=== PATIENT | female | born 1970 | race Two or more races ===

== ENCOUNTER 2025-10-04 17:22 | Emergency (ER) | payer SELFPAY ==
[2025-10-04 18:10] VITALS: BP 147/62; PULSE 86; RESP 18; TEMP 36.6; O2SAT 96; BMI 24.8
--- NOTE | 2025-10-04 18:42 | XR_ITS ---
Examination: CT brain head without contrast. 2-D sagittal coronal reconstructions Date and time of exam: October 04, 2025, 1911 hours INDICATIONS: Nausea vomiting dizziness onset today CTDI: vol (mGy): 48.4 DLP: (mGycm): 902 Technique: Multiple CT axial sections of the brain have been obtained, 5 mm slice thickness. Contrast has not been administered. 2-D sagittal, coronal reconstructions have been obtained Low dose protocols were performed. One or more of the following dose reduction techniques were used; automated exposure control, adjustment of the mA and/or KV according to patient size, use of iterative reconstruction technique. Findings: No significant ventricular enlargement. Intra-axial or extra-axial hemorrhage density is not seen. No mass effect or midline shift Basal cisterns are not remarkable. Fourth ventricle is midline. Cranial vault intact. Impression: Negative for acute hemorrhage, mass effect or midline shift Advise clinical correlation and follow-up accordingly
--- NOTE | 2025-10-04 18:42 | EKG_ITS ---
[facility] Test Date: 2025-10-04 Pat Name: HORACIO WHATLEY Department: Room: - Gender: Female People Greeter: : 1970 Requested By: Mikki Alatorre Order Number: [id number] Reading MD: Mikki Alatorre Measurements Intervals [place] Rate: 86 P: 53 SC: 151 QRS: 24 QRSD: 73 T: 63 QT: 351 QTc: 422 Interpretive Statements SINUS RHYTHM LOW QRS VOLTAGE IN PRECORDIAL LEADS [QRS DEFLECTION < 1.0 mV IN CHEST LEADS] NONSPECIFIC T-WAVE ABNORMALITY No previous ECG available for comparison /store/S0/[id number]/[id number].pdf
[2025-10-04 19:17] LABS: Basophils # (Auto) 0.0 Thou/mm3 (0.0-0.2); Basophils % (Auto) 0 % (0-2.5); Eosinophils # (Auto) 0.0 Thou/mm3 (0.0-0.5); Eosinophils % (Auto) 0 % (0-10); Hematocrit 43.4 % (36.0-46.0); Hemoglobin 14.9 g/dL (12.0-16.0); Immature Granulocytes Auto 0.11 Thou/mm3 (0.00-0.00); Lymphocytes # (Auto) 1.6 Thou/mm3 (1.0-4.8); Lymphocytes % (Auto) 16 % (10-50); Mean Corpuscular HGB Conc 34.3 g/dl (31.0-37.0); Mean Corpuscular Hemoglobin 29.7 pg (25.0-35.0); Mean Corpuscular Volume 87 fL (80-100); Monocytes # (Auto) 0.3 Thou/mm3 (0.0-0.8); Monocytes % (Auto) 3 % (0-12); Neutrophils # (Auto) 8.0 Thou/mm3 (1.8-7.7); Neutrophils % (Auto) 79 % (37-80); Nucleated Red Blood Cell # 0.00 Thou/mm3 (0.00-0.00); Nucleated Red Blood Cell % 0 /100 WBC (0); Platelet Count 198 Thou/mm3 (140-440); RDW Standard Deviation 38.1 fL (36.4-46.3); Red Blood Count 5.02 Miln/mm3 (4.00-5.20); White Blood Count 10.0 Thou/mm3 (3.6-11.0)
[2025-10-04 19:37] LABS: Alanine Aminotransferase 67 U/L (10-49); Albumin, Serum 5.4 gm/dL (3.5-5.0); Albumin/Globulin Ratio 1.8 (1.2-2.2); Alkaline Phosphatase 97 U/L (46-116); Anion Gap 12 (7-16); Aspartate Amino Transferase 46 U/L (0-34); BUN/Creatinine Ratio 20 Ratio (12-20); Bilirubin,Total 0.7 mg/dL (0.3-1.2); Blood Urea Nitrogen 12 mg/dL (9-23); Calcium 10.5 mg/dL (8.3-10.6); Calcium (Corrected) 10.5 mg/dL (8.5-10.1); Carbon Dioxide 26.5 mMol/L (20.0-31.0); Chloride 106 mMol/L (98-107); Creatinine (Component) 0.6 mg/dL (0.6-1.3); Estimated Creatinine Clearance 89.4 mL/min (>60); Globulin 3.0 gm/dL (2.3-3.5); Glucose 119 mg/dL (74-106); Osmolality,Calculated 287 (275-295); Potassium 4.6 mMol/L (3.4-5.1); Sodium 144 mMol/L (136-145); Total Protein 8.4 gm/dL (5.7-8.2); Troponin I < 0.002 ng/mL (0.0-0.045); eGFR > 60 See Note
[2025-10-04 20:31] LABS: Collection Type, Urine Clean Catch
[2025-10-04] MEDS: ONDANSETRON INJ 2 MG/ML INJ 2 ML 4 MG IVP (20:42)
[2025-10-04] MEDS: SODIUM CHLORIDE 0.9% 1000 ML 1,000 ML 999 ML IV (20:43)
[2025-10-04 20:52] LABS: Amorphous Crystals,Urine Present (Absent); Bacteria,Urine Rare; Bilirubin,Urine Negative (Negative); Blood,Urine Trace (Negative); Clarity,Urine Clear (Clear/Hazy); Color,Urine Yellow (Lt Yel-Yel); Glucose, Urine Negative (Negative); Ketones,Urine 1+ (Negative); Leukocyte Esterase,Urine Negative (Negative); Nitrite,Urine Negative (Negative); PH,Urine 6.5 (5.0-7.0); Protein,Urine Trace (Neg - Trace); RBC,Urine 10 /hpf (0-3); Specific Gravity,Urine 1.024 (1.001-1.035); Squamous Epithelial Cell,Urine 3 /hpf (0-5); Urobilinogen,Urine Negative mg/dL (0.0-1.0); WBC,Urine 1 /hpf (0-5)
[2025-10-04 20:54] LABS: HCG Qualitative,Urine Negative
--- NOTE | 2025-12-19 10:05 | PD.EDDIZZY ---
ED Dizzyness RME/HPI General Chief Complaint: Nausea/Vomiting/Diarrhea Stated Complaint: N/V/D, DIZZY Time Seen by Provider: 10/04/25 18:35 Arrival date/time: 10/04/25 17:22 This is a case of 55-year-old female with no medical history came in in the emergency room due to dizziness on and off spinning in character for 2 days denies any headache nor blurring of vision but with nausea and vomiting no diarrhea no abdominal pain Limitations: no limitations Related Data Previous Rx's ?Medication ?Instructions ?Recorded meclizine 50 mg tablet 50 mg PO BID PRN dizziness or 10/04/25 vertigo #30 tabs ondansetron 4 mg disintegrating 4 mg PO Q8H #20 tabs 10/04/25 tablet Allergies Allergy/AdvReac Type Severity Reaction Status Date / Time No Known Allergies Allergy Verified 10/04/25 17:25 Review of Systems Review of Systems Systems Reviewed: All systems reviewed, normal except as documented Past Medical History Social History SMOKING STATUS: Never smoker ED Exam General Limitations: Present no limitations General appearance: Present alert, in no apparent distress and other (Patient is awake alert oriented not in distress nontoxic looking) Head Head exam: Present atraumatic and normocephalic Eye Eye exam: Present normal appearance, PERRL, EOMI and other (PERRL EOM intact normal conjunctiva no pappiledema) ENT ENT exam: Present normal exam, normal oropharynx, mucous membranes moist and other (HEENT exam is normal and unremarkable) Neck Neck exam: Present normal inspection, full ROM and trachea midline Chest Chest inspection: Present normal inspection and symmetric chest wall rise Respiratory Respiratory exam: Present normal lung sounds bilaterally; Absent respiratory distress, wheezes, stridor, accessory muscle use or prolonged expiratory phase Cardiovascular Cardiovascular exam: Present regular rate, normal rhythm and normal heart sounds; Absent bradycardia, tachycardia, irregular rhythm, systolic murmur or diastolic murmur Abdominal Exam Abdominal exam: Present soft and normal bowel sounds; Absent distention, tenderness, guarding, rebound, rigidity, diminished bowel sounds, hyperactive bowel sounds, hypoactive bowel sounds or organomegaly Extremities Exam Extremities exam: Present normal inspection and full ROM Back Exam Back exam: Present normal inspection and full ROM Neurological Exam Neurological exam: Present alert, oriented X3, CN II-XII intact, normal gait, reflexes normal and other (Awake alert oriented x 4 no focal deficit GCS 15/15 steady gait memory intact no slurring speech no facial droop motor or sensory reflex are all normal in all extremities negative Babinski); Absent motor sensory deficit Psychiatric Psychiatric exam: Present normal affect and normal mood Skin Skin exam: Present warm, dry, intact, normal color and other (excellent skin turgor) Course Quality Measures none Orders Category Date Time Status EKG (ED ONLY) *Do not use* NOW Care 10/04/25 18:43 Completed Insert IV NOW Care 10/04/25 20:[address] head/brain wo con Stat Exams 10/04/25 18:42 Completed EKG (ED Only) Stat Exams 10/04/25 18:42 Draft CBC Stat Lab 10/04/25 19:00 Completed Comprehensive Metabolic Panel Stat Lab 10/04/25 19:00 Completed HCG Qualitative,Urine Stat Lab 10/04/25 20:00 Completed Troponin I Stat Lab 10/04/25 19:00 Completed Urinalysis Stat Lab 10/04/25 20:00 Completed Ondansetron Inj [Zofran Inj] Med 10/04/25 18:42 Discontinued 4 mg IVP X1 ONE Sodium Chloride 0.9% 1000 ml [Ns] 1,000 ml Med 10/04/25 18:43 Discontinued IV 999 mls/hr Vital Signs Vital signs: Vital Signs Temperature 97.9 F 10/04/25 18:10 Pulse Rate 86 10/04/25 18:10 Respiratory Rate 18 10/04/25 18:10 Blood Pressure 147/62 H 10/04/25 18:10 Pulse Oximetry (%) 96 10/04/25 18:10 Oxygen Delivery Method Room Air 10/04/25 18:10 Vital signs stable Dizziness MDM Narrative MDM Narrative:: Patient was discharged with comfortable condition walking with stable gait. Patient verbalized no further complains explained diagnosis and answered patient question. Patient is comfortable with the proposed management plan including the need to follow up with his/her primary care physician and any specialist if applicable Discussed patient for any urgent condition or worsening sx, He/She needed to go to emergency room immediately or call 911. Patient acknowledge the responsibility to follow up as instructed and to monitor her/his symptoms. For any persistence of the symptoms for more than 3-5 days return precaution advised. Discussed the result of the test and was given printed discharge instruction Patient data External records reviewed:: [facility] previous records Clinical information provided by:: patient Social determinants that could affect healthcare access:: none Patient has the following chronic illnesses:: none How is presenting disease/condition affected by chronic disease/condition?: no chronic disease Evaluation data The following diagnostics were reviewed and interpreted by me:: lab results and radiology exam(s) Lab and/or radiology exams considered but not ordered:: reviewed Interpretation Summary: reviewed Medications / Prescriptions Medications or Prescriptions considered but not ordered:: given Medication administrations:: Medication Administration History Discontinued Medications Sodium Chloride (Ns) 1,000 mls @ 999 mls/hr IV .Q1H1M ONE Stop: 10/04/25 19:43 Last Infusion: 10/04/25 21:57 Dose: Infused Documented By: Admin: 10/04/25 20:43 Dose: 999 mls/hr Documented By: BD Ondansetron HCl (Ondansetron Inj 2 Mg/Ml Inj 2 Ml) 4 mg IVP X1 ONE; Protocol Stop: 10/04/25 18:43 Last Admin: 10/04/25 20:42 Dose: 4 mg Documented By: BD given Consultations Consultation(s) initiated? (list below): No Diagnosis Dizziness Differential Diagnosis: benign paroxysmal positional vertigo Most likely diagnosis given after review of the tests above:: vertigo Admission Indicated Admission indicated?: not indicated Explain why admission is indicated or not indicated:: not indicated Admission Request Was there a request for admission?: No Admission Attestation Admission request attestation: not indicated Disposition Plan Disposition Plan: Discharge Discharge Attestation Discharge Attestation: The patient and all family members were given an opportunity to ask questions and understood the discharge instructions. Discharge instructions specifically effects, indications for sooner follow up or return to the emergency department, and the expected course of current diagnosis. Patient condition: Stable Discharge Plan Plan Patient Disposition: HOME (Self Care) Patient condition on transfer: Stable Prescriptions/Referrals Prescriptions/Med Rec: New meclizine 50 mg tablet 50 mg PO BID PRN (Reason: dizziness or vertigo) Qty: 30 0RF ondansetron 4 mg tablet,disintegrating 4 mg PO Q8H Qty: 20 0RF Referrals: No Primary/Family,Physician [Primary Care Provider] - In 1 week Problem List Clinical Impression: Dizziness, Vertigo, Vomiting Patient/Caregiver Discharge Instructions Education Materials: Vertigo Medicine Tx, ED Dizziness, Uncertain Cause, ED Vomiting (Adult) Additional Instructions: Follow-up with your primary care physician in 2 days for reevaluation and to be referred to neurologist and ENT specialist for further evaluation and treatment of dizziness and vertigo recurrence persistent worsening symptoms or any emergent concern call 911 or go to the nearest emergency room take your medication as directed increase water intake keep hydrated Pedialyte Gatorade for hydration is advised Print Language: Vietnamese Stand Alone Forms: Gisele Award Info., Patient Portal Info Letter PA/INFORMATION SECURITY ASSOCIATE Supervising Physician PA/INFORMATION SECURITY ASSOCIATE Supervising Physician: Dr. Vaca
== END 2025-10-04 22:00 | disposition home or self-care (01) ==
PROVIDERS: Nurse Practitioner Family; Emergency Provider Emergency Medicine
DX: R42 Dizziness and giddiness (principal); R11.10 Vomiting, unspecified
CPT/HCPCS: 36415; 70450; 80053; 81001; 81025; 84484; 85025; 93005; 96361; 96374; 99284; J2405; J7030